=== PATIENT | female | born 1935 | race Caucasian/White ===

== ENCOUNTER 2018-04-16 06:41 | Day surgery (SDC) | payer MEDICARE, BC ==
[2018-04-16] MEDS: Lactated Ringers 1,000 ML IV SCH (07:21)
[2018-04-16] MEDS ORDERED: Propofol 200 MG/20 ML SDV ONE (08:00)
[2018-04-16] MEDS ORDERED: fentaNYL 100 MCG/2 ML SDV ONE (08:00)
[2018-04-16] MEDS ORDERED: Bupivacaine 0.25% 30 ML SDV ONE (08:24)
[2018-04-16] MEDS: Bupivacaine 0.25% 30 ML SDV INJECT ONE ×2 (08:47)
--- NOTE | 2018-04-16 10:19 | OR ---
PREOPERATIVE DIAGNOSES: 1. Ganglion, right third finger distal interphalangeal joint. 2. Ganglion, right proximal interphalangeal joint, third finger. POSTOPERATIVE DIAGNOSES: 1. Ganglion, right third finger distal interphalangeal joint. 2. Ganglion, right proximal interphalangeal joint, third finger. PROCEDURE PROPOSED AND PROCEDURE DONE: 1. Excision ganglion, right third finger DIP joint. 2. Excision ganglion, right third finger PIP joint. QUALITY LEAD: Penny Jiang. INDICATION: This is an elderly female with a fairly rapidly growing ganglion on her right long finger that are becoming bothersome to her and uncomfortable and it was felt that she should undergo surgical excision. TECHNIQUE: The patient was brought to the operative suite and given some MAC sedation per [employer]TTED IN[employer]UMENT [employer]KER. The right hand and forearm were sterilely prepped and draped. A digital block was performed using approximately 10 mL of 0.25% Marcaine plain. The finger was then exsanguinated with 0.5 inch Amberly drain and the Magnolia drain was then left in place at the base of the finger as a tourniquet. The patient had a large ganglion at the PIP joint and measured close to 2 cm in size. She had a smaller one at the DIP that measured about 1.2 cm in size. I then made a transverse incision over the largest ganglion at the PIP joint. The ganglionic cyst was dissected free from the surrounding tissue. It was quite large and measured a good 2 cm. It was basically left intact upon removal, except for a communication that appeared to extend towards the tip of the finger. There appeared to be possibly some communication with the other cyst at the distal joint. After removing the cyst completely, I then shakila our attention to the distal cyst where a second incision was made transversely over this cyst and the dissection carried down through the skin and the cyst wall was found and removed. Some curettage was performed in both areas to roughen up the tissue to hopefully prevent recurrence. I then reapproximated some of the subcutaneous tissue with interrupted [id number] stitches of 5-0 Vicryl in both areas and the skin incisions were closed with interrupted vertical mattress stitches of 5-0 Ethilon. The incision on the DIP joint measured 1.2 cm. The incision on the PIP joint measured 2.2 cm. The finger was then dressed with Adaptic followed by 2x2 and a 2-inch Radha wrap was placed around the finger and then around the wrist to hold it in place. She tolerated the entire procedure well with minimal blood loss and she was taken back to recovery in good condition. SCM: 04/16/2018 09:42:36 MODL: 04/16/2018 10:12:56 /[id number]
[2018-04-16 10:41] VITALS: BP 191/73
== END 2018-04-16 11:08 | disposition home or self-care (01) ==
LOC: VM.SDS 06:41
PROVIDERS: ATTEND Surgery
DX: M67.441 Ganglion, right hand (principal); I10 Essential (primary) hypertension; E11.9 Type 2 diabetes mellitus without complications; Z79.84 Long term (current) use of oral hypoglycemic drugs; E66.9 Obesity, unspecified; Z88.5 Allergy status to narcotic agent; Z88.8 Allergy status to other drugs, medicaments and biological substances
CPT/HCPCS: 01810; 26160; 82962; J2704; J3010; J3490; J7120

== ENCOUNTER 2021-02-04 06:50 | Emergency (ER) | payer MEDICARE, BC ==
[2021-02-04 09:26] LABS: CHLORIDE,CL 94 mmol/L (98-107); SODIUM,NA 133 mmol/L (136-145)
[2021-02-04 10:01] VITALS: BP 155/74; PULSE 93
--- NOTE | 2021-02-05 00:36 | EDM.PDOC ---
ED HPI GENERAL MEDICAL PROBLEM - General Chief Complaint: General Stated Complaint: ER Time Seen by Provider: 02/04/21 07:00 Source of Information: Reports: Patient History Limitations: Reports: No Limitations - History of Present Illness INITIAL COMMENTS - FREE TEXT/NARRATIVE: Pt. presents to ER via EMS. Pt. states that she fell forward early this AM, striking her head/face on the floor. Pt. states that she tripped and denied any chest pain, palpitations, or shortness of breath prior to or post fall. Pt. states that she always has some neck pain and is not sure if it is worse today than normal. Pt. denies any fever or chills. She complains of R shoulder pain since the fall when she possibly tried to catch herself. She denies any acute vision loss or change, problems with speech or ambulation, numbness/tingling in extremities. Onset: Today Onset Date: 02/05/21 - Related Data Allergies Allergy/AdvReac Type Severity Reaction Status Date / Time codeine Allergy Rash Verified 02/04/21 09:32 atorvastatin calcium AdvReac Muscle Verified 02/04/21 09:32 [From Lipitor] Aches lisinopril AdvReac Cough Verified 02/04/21 09:32 cigarettes Allergy Cannot Uncoded 02/04/21 09:32 Remember Home Meds: Home Meds Acetaminophen [Acetaminophen 8 Hour] 650 mg PO BID PRN 12/13/13 [History] Aspirin 325 mg PO DAILY 12/13/13 [History] Lovastatin 60 mg PO BEDTIME 12/13/13 [History] Omeprazole [Prilosec] 20 mg PO DAILY PRN 12/13/13 [History] Oxybutynin 10 mg PO BEDTIME 12/13/13 [History] Ibuprofen 400 mg PO Q4H PRN 03/19/16 [History] sitaGLIPtin Phos/Metformin HCl [Janumet 50-1,000 MG] 1 tab PO BIDMEALS 03/19/16 [History] Valsartan/Hydrochlorothiazide [Diovan Hct 320-25 mg Tablet] 1 each PO DAILY 02/04/21 [History] Past Medical History HEENT History: Reports: Cataract, Retinal Detachment, Other (See Below) Other HEENT History: Blepharitis Cardiovascular History: Reports: High Cholesterol, Hypertension Respiratory History: Reports: Other (See Below) Other Respiratory History: pulmonary nodule Gastrointestinal History: Reports: Colon Polyp, GERD Genitourinary History: Reports: Urinary Incontinence Other Genitourinary History: INCONTINENT Musculoskeletal History: Reports: Arthritis, Osteoarthritis Other Musculoskeletal History: Thoracic compression FX Neurological History: Reports: None Psychiatric History: Reports: None Endocrine/Metabolic History: Reports: Diabetes, Type II, Obesity/BMI 30+ Hematologic History: Reports: None Immunologic History: Reports: None Oncologic (Cancer) History: Reports: None Dermatologic History: Reports: None - Past Surgical History Head Surgeries/Procedures: Reports: None HEENT Surgical History: Reports: Cataract Surgery Cardiovascular Surgical History: Reports: None GI Surgical History: Reports: Colonoscopy Musculoskeletal Surgical History: Reports: Knee Replacement Social & Family History - Family History Family Medical History: No Pertinent Family History - Tobacco Use Tobacco Use Status *Q: Unknown Ever Used Tobacco ED ROS GENERAL - Review of Systems Review Of Systems: See Below Constitutional: Reports: No Symptoms HEENT: Reports: Other (see HPI) Respiratory: Reports: No Symptoms Cardiovascular: Reports: No Symptoms Endocrine: Reports: No Symptoms GI/Abdominal: Reports: No Symptoms : Reports: No Symptoms Musculoskeletal: Reports: Neck Pain, Shoulder Pain Skin: Reports: No Symptoms Neurological: Reports: No Symptoms Psychiatric: Reports: No Symptoms Hematologic/Lymphatic: Reports: No Symptoms Immunologic: Reports: No Symptoms ED EXAM, GENERAL - Physical Exam Exam: See Below Exam Limited By: No Limitations General Appearance: Alert, WD/WN, No Apparent Distress Eye Exam: Bilateral Eye: EOMI, Normal Fundi, Normal Inspection, PERRL Throat/Mouth: Normal Inspection, Normal Lips, Normal Teeth, Normal Oropharynx, No Airway Compromise Head: Other (Mild erythema to forhead/nose.) Neck: Normal Inspection, Supple, Tender Midline (States may be chronic) Respiratory/Chest: No Respiratory Distress, Lungs Clear, Normal Breath Sounds, No Accessory Muscle Use, Chest Non-Tender Cardiovascular: Normal Peripheral Pulses, Regular Rate, Rhythm, No Edema, No JVD, No Murmur Peripheral Pulses: 4+: Radial (L) GI/Abdominal: Soft, Non-Tender, No Distention, No Mass (Female) Exam: Deferred Rectal (Female) Exam: Deferred Back Exam: Normal Inspection, Full Range of Motion Extremities: Normal Inspection, Arm Pain (Pain with movement/manipulation of R shoulder. No crepitus. ) Neurological: Alert, Oriented, CN II-XII Intact, Normal Cognition, Normal Gait, Normal Reflexes, No Motor/Sensory Deficits Psychiatric: Normal Affect, Normal Mood #1 Interpretation Rhythm: NSR Baird: Normal P-Wave: Present QRS: Normal ST-T: Normal QT: Normal Course - Vital Signs Last Recorded V/S: Last Vital Signs Temp 36.8 C 02/04/21 06:50 Pulse 93 02/04/21 08:55 Resp 16 02/04/21 08:55 BP 155/74 H 02/04/21 08:55 Pulse Ox 94 L 02/04/21 08:55 - Orders/Labs/Meds Orders: Active Orders 24 hr Category Date Time Status Cervical Spine wo Cont [CT] Stat Exams 02/04/21 09:22 Taken Head wo Cont [CT] Stat Exams 02/04/21 09:21 Taken Shoulder Comp Rt [CR] Stat Exams 02/04/21 09:22 Taken Labs: Laboratory Tests 02/04/21 02/04/21 02/04/21 Range/Units 07:28 07:28 07:28 WBC 10.5 H (4.0-10.0) x10^3/uL RBC 4.59 (4.00-5.50) x10^6/uL Hgb 12.8 (12.0-16.0) g/dL Hct 37.7 (33.0-47.0) % MCV 82.1 D (78.0-93.0) fL MCH 27.9 (26.0-32.0) pg MCHC 34.0 (32.0-36.0) g/dL RDW Coeff of Raz 13.4 (10.0-15.0) % Plt Count 256 (130-400) x10^3/uL Neut % (Auto) 84.0 H (50.0-80.0) % Lymph % (Auto) 8.2 L (25.0-50.0) % [place] % (Auto) 7.5 (2.0-11.0) % Eos % (Auto) 0.2 (0.0-4.0) % Baso % (Auto) 0.1 L (0.2-1.2) % Sodium 133 L (136-145) mmol/L Potassium 3.0 L (3.5-5.1) mmol/L Chloride 94 L (98-107) mmol/L Carbon Dioxide 32 (21-32) mmol/L Anion Gap 10.0 (5-15) mmol/L BUN 9 (7-18) mg/dL Creatinine 0.7 (0.55-1.02) mg/dL Est Cr Clr Drug Dosing TNP Estimated GFR (MDRD) > 60 Glucose 147 H (70-99) mg/dL Calcium 8.5 (8.5-10.1) mg/dL Corrected Calcium 8.8 (8.5-10.1) mg/dL Total Bilirubin 0.5 (0.2-1.0) mg/dL AST 14 L (15-37) U/L ALT 13 L (14-59) U/L Alkaline Phosphatase 82 (46-116) U/L Creatine Kinase 68 (26-192) U/L Troponin I High Sens 10 (<=51) ng/L Total Protein 7.7 (6.4-8.2) g/dL Albumin 3.6 (3.4-5.0) g/dL Globulin 4.1 Albumin/Globulin Ratio 0.88 Urine Color Yellow (YELLOW) Urine Appearance Clear (CLEAR) Urine pH 6.5 (5.0-8.0) Ur Specific [place] 1.015 Urine Protein Negative (NEGATIVE) mg/dL Urine Glucose (UA) Negative (NEGATIVE) mg/dL Urine Ketones Negative (NEGATIVE) mg/dL Urine Occult Blood Negative (NEGATIVE) Urine Nitrite Negative (NEGATIVE) Urine Bilirubin Negative (NEGATIVE) Urine Urobilinogen 0.2 (0.2) EU/dL Ur Leukocyte Esterase Negative (NEGATIVE) - Radiology Interpretation Free Text/Narrative:: CT brain and C spine without contrast obtained showing no acute pathology. Radiographs of R shoulder obtained, showing no acute fracture, dislocation or other pathology. Departure - Departure Time of Disposition: 09:30 Disposition: Home, Self-Care 01 Clinical Impression: Closed head injury - Discharge Information Instructions: Head Injury, Adult, [id number] Referrals: Shelia Nunez DO [Primary Care Provider] - Forms: ED Department Discharge Additional Instructions: All of your labs and x-rays looked OK. Follow-up in clinic in 10-14 days. Drink plenty of water. Sepsis Event Note (ED) - Evaluation Sepsis Screening Result: No Definite Risk - Problem List Review Problem List Initiated/Reviewed/Updated: Yes - My Orders Last 24 Hours: My Active Orders 02/04/21 09:21 Head wo Cont [CT] Stat 02/04/21 09:22 Cervical Spine wo Cont [CT] Stat Shoulder Comp Rt [CR] Stat - Assessment/Plan Last 24 Hours: My Active Orders 02/04/21 09:21 Head wo Cont [CT] Stat 02/04/21 09:22 Cervical Spine wo Cont [CT] Stat Shoulder Comp Rt [CR] Stat Plan: All of your labs and x-rays looked OK. Follow-up in clinic in 10-14 days. Drink plenty of water.
== END 2021-02-04 10:34 | disposition home or self-care (01) ==
LOC: VM.ED 06:50
DX: S09.90XA Unspecified injury of head, initial encounter (principal); E78.00 Pure hypercholesterolemia, unspecified; I10 Essential (primary) hypertension; E11.9 Type 2 diabetes mellitus without complications; E66.9 Obesity, unspecified; K21.9 Gastro-esophageal reflux disease without esophagitis; Z68.30 Body mass index [BMI] 30.0-30.9, adult; Z79.82 Long term (current) use of aspirin; Z79.899 Other long term (current) drug therapy; Z88.5 Allergy status to narcotic agent; Z88.8 Allergy status to other drugs, medicaments and biological substances; Z91.048 Other nonmedicinal substance allergy status; W18.09XA Striking against other object with subsequent fall, initial encounter
CPT/HCPCS: 36415; 70450; 72125; 73030-RT; 80053; 81003; 82550; 84484; 85025; 93005; 93010; 99284; 99284-25

== ENCOUNTER 2022-02-24 01:58 | Emergency (ER) | payer MEDICARE, BC ==
[2022-02-24 02:12] VITALS: BP 183/85; PULSE 84
== END 2022-02-24 07:58 | disposition home or self-care (01) ==
LOC: VM.ED 01:58
DX: M54.50 Low back pain, unspecified (principal); M53.3 Sacrococcygeal disorders, not elsewhere classified; E78.00 Pure hypercholesterolemia, unspecified; I10 Essential (primary) hypertension; K21.9 Gastro-esophageal reflux disease without esophagitis; E11.9 Type 2 diabetes mellitus without complications; E66.9 Obesity, unspecified; Z88.5 Allergy status to narcotic agent; Z91.048 Other nonmedicinal substance allergy status; Z88.8 Allergy status to other drugs, medicaments and biological substances; Z79.82 Long term (current) use of aspirin; Z79.899 Other long term (current) drug therapy; Z68.22 Body mass index [BMI] 22.0-22.9, adult
CPT/HCPCS: 72100; 72220; 99283; 99284

== ENCOUNTER 2024-02-13 12:31 | Emergency (ER) | payer MEDICARE, BC ==
[2024-02-13 12:43] VITALS: PULSE 88
[2024-02-13 13:33] LABS: A/G RATIO 1.09; ALANINE AMINOTRANSFERASE,ALT 14 U/L (14-59); ALBUMIN 3.8 g/dL (3.4-5.0); ALKALINE PHOSPHATASE 75 U/L (46-116); ASPARTATE AMNIOTRANSFERASE,AST 15 U/L (15-37); BILIRUBIN TOTAL 0.5 mg/dL (0.2-1.0); BLOOD UREA NITROGEN,BUN 6 mg/dL (7-18); CARBON DIOXIDE,CO2 28 mmol/L (21-32); CHLORIDE,CL 96 mmol/L (98-107); CREATININE 0.7 mg/dL (0.55-1.02); GLUCOSE RANDOM 110 mg/dL (70-99); POTASSIUM,K 4.2 mmol/L (3.5-5.1); PROTEIN TOTAL,TP 7.3 g/dL (6.4-8.2); SODIUM,NA 135 mmol/L (136-145)
[2024-02-13 13:35] LABS: ANION GAP 15.2 mmol/L (5-15); ESTIMATED GFR 84 mL/min (>=60)
[2024-02-13 13:41] VITALS: BP 183/89
== END 2024-02-13 14:13 | disposition home or self-care (01) ==
LOC: VM.ED 12:31
DX: I44.7 Left bundle-branch block, unspecified (principal); I10 Essential (primary) hypertension; E78.00 Pure hypercholesterolemia, unspecified; K21.9 Gastro-esophageal reflux disease without esophagitis; E11.9 Type 2 diabetes mellitus without complications; E66.9 Obesity, unspecified; Z79.82 Long term (current) use of aspirin; Z79.899 Other long term (current) drug therapy; Z88.5 Allergy status to narcotic agent; Z88.8 Allergy status to other drugs, medicaments and biological substances; Z91.048 Other nonmedicinal substance allergy status
CPT/HCPCS: 36415; 80053; 84484; 93005; 93010; 99283; 99284

== ENCOUNTER 2024-02-15 20:06 | Emergency (ER) | payer MEDICARE, BC ==
[2024-02-15 20:41] VITALS: PULSE 90
[2024-02-15 20:57] VITALS: BP 144/78
== END 2024-02-15 20:50 | disposition home or self-care (01) ==
LOC: VM.ED 20:06
DX: R13.10 Dysphagia, unspecified (principal); I10 Essential (primary) hypertension; E78.00 Pure hypercholesterolemia, unspecified; K21.9 Gastro-esophageal reflux disease without esophagitis; E11.9 Type 2 diabetes mellitus without complications; Z90.49 Acquired absence of other specified parts of digestive tract; Z88.5 Allergy status to narcotic agent; Z88.8 Allergy status to other drugs, medicaments and biological substances; Z91.048 Other nonmedicinal substance allergy status; Z79.82 Long term (current) use of aspirin; Z79.899 Other long term (current) drug therapy
CPT/HCPCS: 99283

== ENCOUNTER 2025-03-17 06:58 | Emergency (ER) | payer MEDICARE, BC ==
[2025-03-17 07:29] LABS: APPEARANCE,URINE SLIGHTLY CLOUDY (CLEAR); GLUCOSE,URINE NEGATIVE (NEGATIVE); OCCULT BLOOD,URINE MODERATE (NEGATIVE)
[2025-03-17 07:41] LABS: SQUAMOUS EPITHELIAL CELLS,UR OCCASIONAL /HPF (NOT SEEN)
[2025-03-17 07:43] LABS: BASOPHILS ABSOLUTE AUTO 0.0 x10^3/uL (0.0-0.2); BASOPHILS PERCENT AUTO 0.2 % (0.2-1.2); EOSINOPHILS ABSOLUTE AUTO 0.1 x10^3/uL (0.0-0.5); EOSINOPHILS PERCENT AUTO 0.7 % (0.0-4.0); IMMATURE GRAN ABSOLUTE AUTO 0.01 x10^3/uL (0.00-0.07); IMMATURE GRAN PERCENT AUTO 0.10 % (0.00-0.43); LYMPHOCYTES ABSOLUTE AUTO 1.2 x10^3/uL (1.0-4.8); LYMPHOCYTES PERCENT AUTO 13.0 % (25.0-50.0); MONOCYTES ABSOLUTE AUTO 0.9 x10^3/uL (0.0-0.8); MONOCYTES PERCENT AUTO 9.7 % (2.0-11.0); NEUTROPHILS ABSOLUTE AUTO 7.3 x10^3/uL (1.8-7.7); NEUTROPHILS PERCENT AUTO 76.3 % (50.0-80.0); PLATELET COUNT,PLT 234 x10^3/uL (130-400); RED BLOOD CELL COUNT 4.54 x10^6/uL (4.00-5.50); WHITE BLOOD CELL COUNT,WBC 9.5 x10^3/uL (4.0-10.0)
[2025-03-17 08:05] LABS: A/G RATIO 1.19; ALANINE AMINOTRANSFERASE,ALT 14.0 U/L (14-59); ASPARTATE AMNIOTRANSFERASE,AST 18.0 U/L (15-37); BILIRUBIN TOTAL 0.5 mg/dL (0.2-1.0); BLOOD UREA NITROGEN,BUN 8.0 mg/dL (7-18); CARBON DIOXIDE,CO2 31.0 mmol/L (21-32); CHLORIDE,CL 98.0 mmol/L (98-107); CREATININE 0.8 mg/dL (0.55-1.02); EST CRCL DRUG DOSING (CG) 35.59 mL/min; ESTIMATED GFR 71.0 mL/min (>=60); GLUCOSE RANDOM 151.0 mg/dL (70-99); POTASSIUM,K 3.8 mmol/L (3.5-5.1); PROTEIN TOTAL,TP 7.0 g/dL (6.4-8.2); SODIUM,NA 138.0 mmol/L (136-145)
[2025-03-17] MEDS: Iopamidol 612 MG/ML 100 ML Bottle IVPUSH ONE (08:29)
[2025-03-17] MEDS: Ondansetron 4 MG Tab.DIS PO ONE (08:46)
[2025-03-17] MEDS: Ketorolac 15 MG/ML SDV IVPUSH ONE (08:49)
[2025-03-17 20:42] VITALS: BP 128/72; PULSE 78
== END 2025-03-17 09:45 | disposition home or self-care (01) ==
LOC: VM.ED 06:58
DX: N13.2 Hydronephrosis with renal and ureteral calculous obstruction (principal); I10 Essential (primary) hypertension; E66.9 Obesity, unspecified; E11.9 Type 2 diabetes mellitus without complications; K21.9 Gastro-esophageal reflux disease without esophagitis; M19.90 Unspecified osteoarthritis, unspecified site; Z79.899 Other long term (current) drug therapy; Z79.1 Long term (current) use of non-steroidal anti-inflammatories (NSAID); Z79.82 Long term (current) use of aspirin; Z88.5 Allergy status to narcotic agent; Z88.8 Allergy status to other drugs, medicaments and biological substances; Z90.49 Acquired absence of other specified parts of digestive tract; Z68.33 Body mass index [BMI] 33.0-33.9, adult
CPT/HCPCS: 36415; 74177; 80053; 81001; 83605; 83735; 85025; 96374; 99285; A9270; J1885; Q9967; 99284